=== PATIENT | male | born 1980 | race Caucasian/White ===

== ENCOUNTER 2020-05-22 18:30 | Emergency (ER) | payer MEDICAID ==
[~2020-05-22] VITALS: Ht 175.3 cm; Wt 74.8 kg
[~2020-05-22 18:30] MED LIST: ACEBUTCAFT PO; ATEN50; AZIT250 PO; BUSP10; CEPH500 PO; CIPR500 PO; CLON1; CLON1 PO; CODBUTACEC PO; CRUTCH4 USE; CYCL10 PO; ESCI10; ESCI20; ESCI20 PO; HYDACE5 PO; IBUHYD PO; IBUP600; IBUP600 PO; IBUP800; IBUP800 PO; IBUPROFEN PO; META800 PO; METPHE10; METPHE10 PO; MULVITA; NAPR500 PO; OMEP20ER PO; ONDA4ODT MM; OSEL75CA PO; OXYACE5T PO; OXYC5 PO; PROM25 PO; RXCYCL10 PO; RXHYDACE PO; RXOXYACE PO; RXPROACE PO; RXTRAM50 PO; TRAACE PO; TRAM50 PO; VITB100
[2020-05-22 20:11] LABS: Hematocrit 28.2 % (37.0-53.0); Hemoglobin 9.5 g/dL (13.5-17.5); Mean Corpuscular HGB 27.1 pg (26.0-34.0); Mean Corpuscular HGB Conc 33.7 g/dL (31.5-36.5); Mean Corpuscular Volume 81 fL (80-100); Mean Platelet Volume 10.9 fL (9.1-12.4); Platelet Count 313 K/mm3 (150-400); RDW Coefficient Variation 15.3 % (11.7-14.2); RDW Standard Deviation 44.6 fL (35.1-46.3)
[2020-05-22 20:16] LABS: White Blood Cell Count 53.61 K/mm3 (4.00-11.30)
[2020-05-22 20:37] LABS: BAND PERCENT MAN 7 % (0-8); BASOPHILS PERCENT MAN 0 % (0-2); EOSINOPHILS PERCENT MAN 0 % (0-6); LYMPHOCYTES ABSOLUTE MAN 1.07 K/mm3 (0.84-5.20); LYMPHOCYTES PERCENT MAN 2 % (21-46); METAMYELOCYTE ABSOLUTE MAN 0.53 K/mm3 (0.00-0.00); METAMYELOCYTE PERCENT MAN 1 % (0-0); MONOCYTES ABSOLUTE MAN 3.21 K/mm3 (0.16-1.47); MONOCYTES PERCENT MAN 6 % (4-13); MYELOCYTE ABSOLUTE MAN 0.53 K/mm3 (0.00-0.00); MYELOCYTE PERCENT MAN 1 % (0-0); NEUTROPHILS ABSOLUTE MAN 48.24 K/mm3 (1.96-9.15); SEG NEUTROPHILS PERCENT MAN 83 % (41-73); TOTAL CELLS COUNTED 100
[2020-05-22 20:57] LABS: Source, Urine Clean Catch
[2020-05-22 21:01] LABS: Appearance, Urine Hazy (Clear); Bilirubin, Urine Neg (Neg); Blood, Urine 5+ (Neg); Color, Urine Yellow (P-Yellow); Glucose Qualitative, Urine Neg (Neg); Ketones, Urine Neg (Neg); Leukocyte Esterase, Urine 3+ (Neg); Nitrite, Urine Neg (Neg); Protein, Urine 3+ (Neg); Urobilinogen, Urine NORM (Normal)
[2020-05-22 21:09] LABS: Albumin/Globulin Ratio 0.3 (0.8-1.8); Bilirubin, Total 0.3 mg/dL (0.1-1.0); Calcium, Blood 8.6 mg/dL (8.5-10.1); Creatinine, Blood 3.9 mg/dL (0.60-1.20); Globulin, Blood 6.2 g/dL (2.2-4.0); Potassium, Blood 6.9 mmol/L (3.5-5.5); Total Protein, Blood 8.2 g/dL (6.4-8.2)
[2020-05-22 21:09] LABS: Granular Casts 0-2 /lpf (0)
[2020-05-22 21:10] LABS: Amorphous Mod (0-Heavy); Bacteria Few /hpf; Red Blood Cells, Urine 25-50 /hpf (0-2); Squamous Epithelial Cells Few /hpf (Few)
[2020-05-22 21:11] LABS: Renal Epithelial Mod /hpf (0-Rare)
[2020-05-22 21:13] LABS: U Amphetamine Screen Not Detected; U Barbituate Screen Not Detected; U Benzodiazapine Screen Not Detected; U Buprenorphine Screen Not Detected; U Cannabinoids Screen Not Detected; U Cocaine Screen Not Detected; U Methadone Screen Not Detected; U Methamphetamine Screen DETECTED; U Opiates Screen DETECTED; U Oxycodone Screen Not Detected; U Phencyclidine Screen Not Detected; U Propoxyphene Screen Not Detected
[2020-05-22 23:08] LABS: Base Excess Venous -11.5 mmol/L; Bicarbonate Venous 16.1 mmol/L (24.0-30.0); PCO2 Venous 28.2 mmHg (38-42); PO2 Venous 160 mmHg (38-42); pH Blood Venous 7.32 (7.34-7.37)
[2020-05-22 23:40] LABS: Calcium, Ionized (POC) 1.11 mmol/L (1.10-1.46); Chloride (POC) 109 mmol/L (98-108); Creatinine (POC) 3.8 mg/dL (0.8-1.3); Glucose (ISTAT POC) 65 mg/dL (70-99); Hemoglobin (POC) 11.2 g/dL (13.5-17.5); Potassium (POC) 5.5 mmol/L (3.5-5.5); Sodium (POC) 136 mmol/L (135-148); Total CO2 (POC) 15 mmol/L (21-32)
== END 2020-05-23 01:51 | disposition short-term general hospital (02) ==
LOC: ER 18:30
PROVIDERS: Emergency Medicine
DX: A41.9 Sepsis, unspecified organism (principal); N39.0 Urinary tract infection, site not specified; R65.20 Severe sepsis without septic shock; N17.9 Acute kidney failure, unspecified; E86.0 Dehydration; L02.31 Cutaneous abscess of buttock; L02.611 Cutaneous abscess of right foot; L02.415 Cutaneous abscess of right lower limb; Z20.828 Contact with and (suspected) exposure to other viral communicable diseases; Z88.0 Allergy status to penicillin; Z88.5 Allergy status to narcotic agent; Z88.8 Allergy status to other drugs, medicaments and biological substances
CPT/HCPCS: 36415; 70450; 70490; 71045; 71250; 80047; 80053; 81001; 82803; 83605; 83735; 85014; 85025; 85651; 86140; 87040; 87077; 87086; 87147; 87186; 93005; 93010; 96361; 96365; 96366; 96367; 96368; 96375; 96376; 99285-25; A9270; J0696; J1580; J1815; J3370; J7030; U0003